=== PATIENT | female | born 1990 | race Caucasian/White ===

== ENCOUNTER 2023-04-01 19:19 | Outpatient (CLI) | payer OTHER, SELFPAY ==
[2023-04-01 14:07] LABS: TSH (W/Ref FT4) 5.79 uIU/mL (0.36-3.74)
[2023-04-02 08:52] LABS: Hepatitis B Surface Ag Negative (Negative)
[2023-04-02 09:23] LABS: Hepatitis C Ab w Rflx HCV PCR Negative (Negative)
[2023-04-02 09:35] LABS: HIV-1/2 Ag & Ab Screen Negative (Negative)
[2023-04-02 13:24] LABS: Chlamydia Result Negative (Negative); GC Result Negative (Negative)
[2023-04-03 15:48] LABS: Syphilis IgG w/Reflex Nonreactive (Nonreactive)
== END 2023-04-01 19:20 | disposition home or self-care (01) ==
LOC: LBO 19:20
PROVIDERS: PCP Advanced Practice Midwife; Visit Provider Advanced Practice Midwife
DX: Z11.3 Encounter for screening for infections with a predominantly sexual mode of transmission (principal); F41.9 Anxiety disorder, unspecified
CPT/HCPCS: 36415; 86803; 87340; 87389; 87491; 87591; 84439; 84443; 86780; 87480; 87510; 87660